=== PATIENT | female | born 1955 | race Caucasian/White ===

== ENCOUNTER 2016-11-20 14:37 | Emergency (ER) | payer SELFPAY ==
[2016-11-20] MEDS ORDERED: Lasix 40 MG/4 ML IV ONE (15:00)
[2016-11-20] MEDS ORDERED: BABY ASPIRIN 81 MG CHEW PO ONE (15:00)
[2016-11-20] MEDS ORDERED: Nitrostat 0.4 MG (ED) SL ONE ×3 (15:00→15:58)
[2016-11-20] MEDS ORDERED: Sodium Chloride 0.9% 1000 ML 1,000 ML IV SCH (15:00)
--- NOTE | 2016-11-20 15:00 | ERPHSYRPT ---
- History of Present Illness Time Seen by Provider: 11/20/16 14:50 Historian: patient Exam Limitations: clinical condition Patient Subjective Stated Complaint: CP Triage Nursing Assessment: CP SINCE 1000. NAUSEA, INCREASED SOB. RADIATING MID STERNAL CP TO LT ARM TO ELBOW. PAIN WORSE EARLIER BUT STILL HAS CP NOW. RESP EASY. NORMAL ORAL INTAKE. STATES HAD HEAVINESS IN CHEST LAST EVENING. Physician History: PATIENT WITH HISTORY OF HYPOTHYROIDISM COMPLAINS OF SUBSTERNAL CHEST PRESSURE INTERMITTENT SINCE YESTERDAY. HAS OCCASIONAL DYSPNEA, RADIATION OF PAIN TO LEFT SHOULDER ALONG WITH PRODUCTIVE COUGH [id number] SPUTUM. DENIES FEVER OR CHILLS. STATES PAIN SCALE 7/10 HAS BEEN CONSTANT. Timing/Duration: yesterday Activities at Onset: none Quality: pressure Location: substernal Chest Pain Radiation: arm Severity of Pain-Max: moderate Severity of Pain-Current: moderate Modifying Factors: Improves With: nitroglycerin, oxygen, change in position Associated Symptoms: cough Prior Chest Pain/Cardiac Workup: non-cardiac Nitro Today/Relief: 0.4 mg x 2 Aspirin Treatment Today: 81 mg x 4, provided at home Allergies/Adverse Reactions: pregabalin [From Lyrica] Allergy (Verified 11/20/16 14:46) Home Medications: Aspirin [Aspirin EC] 81 mg PO DAILY 03/08/16 [History] Levothyroxine Sodium 75 Mcg [Synthroid 75 Mcg] 75 mcg PO DAILY 03/08/16 [ History] Hx Tetanus, Diphtheria Vaccination/Date Given: Yes Hx Influenza Vaccination/Date Given: No Hx Pneumococcal Vaccination/Date Given: No Immunizations Up to Date: Yes - Review of Systems Constitutional: No Fever, No Chills Eyes: No Symptoms Ears, Nose, & Throat: No Symptoms Respiratory: Cough, Dyspnea Cardiac: Chest Pain, No Edema, No Syncope Abdominal/Gastrointestinal: No Symptoms, No Abdominal Pain, No Nausea, No Vomiting, No Diarrhea Genitourinary Symptoms: No Symptoms, No Dysuria Musculoskeletal: No Symptoms, No Back Pain, No Neck Pain Skin: No Rash Neurological: No Symptoms, No Dizziness, No Focal Weakness, No Sensory Changes Psychological: No Symptoms Endocrine: No Symptoms All Other Systems: Reviewed and Negative - Past Medical History Pertinent Past Medical History: Yes Neurological History: Peripheral Neuropathy ENT History: No Pertinent History Cardiac History: No Pertinent History Respiratory History: No Pertinent History Endocrine Medical History: Hypothyroidism Musculoskeletal History: Osteoarthritis GI Medical History: No Pertinent History History: No Pertinent History Psycho-Social History: No Pertinent History Female Reproductive Disorders: Menstrual Problems Other Medical History: REPORTS SHE HAS BEEN DIZZY MORE IN THE AM. BP HAS BEEN RUNNING LOWER THAN NORMAL. NUEROPATHY TO ALL LEFT TOES. - Past Surgical History Past Surgical History: Yes Neuro Surgical History: No Pertinent History Cardiac: No Pertinent History Gastrointestinal: No Pertinent History Genitourinary: No Pertinent History Musculoskeletal: No Pertinent History Female Surgical History: Hysterectomy Other Surgical History: cyst eye surgery--rt eye - Social History Smoking Status: Never smoker Exposure to second hand smoke: No Drug Use: none Patient Lives Alone: Yes Significant Family History:  - Nursing Vital Signs Temperature: 98.2 F Temperature Source: Oral Pulse Rate: 74 Respiratory Rate: 18 Pain Intensity: 5 - Physical Exam General Appearance: no apparent distress, alert Eye Exam: PERRL/EOMI, eyes nml inspection Ears, Nose, Throat Exam: normal ENT inspection, moist mucous membranes Neck Exam: normal inspection, non-tender, supple, full range of motion Respiratory Exam: normal breath sounds, lungs clear, No respiratory distress Cardiovascular Exam: regular rate/rhythm, normal heart sounds Gastrointestinal/Abdomen Exam: soft, normal bowel sounds, No tenderness, No mass Back Exam: normal inspection, No CVA tenderness, No vertebral tenderness Extremity Exam: normal inspection, normal range of motion, pedal edema, swelling (2+ PITTING EDEMA) Neurologic Exam: alert, oriented x 3, cooperative, normal mood/affect, sensation nml, No motor deficits Skin Exam: normal color, warm, dry SpO2 Interpretation: normal SpO2: 98 Oxygen Delivery: Room Air - Course EKG Interpreted by Me: RATE, Sinus Rhythm, Right [place] Deviation, Other ( INFERIOR T-WAVE INVERSION) - Radiology Exams Chest X-ray Interpretation: Discussed w/ radiologist (THERE IS A SUBTLE RIGHT BASE INFILTRATE VERSUS ATELECTASIS) Ordered Tests: Active Orders 24 hr Category Date Time Status Drying Can Worker STAT Care 11/20/16 15:00 Active EKG-ER Only STAT Care 11/20/16 15:00 Active EKG-ER Only STAT Care 11/20/16 15:50 Active IV Insertion STAT Care 11/20/16 15:00 Active Oxygen-ED Only NASAL CANNULA 2 lpm Care 11/20/16 15:00 Active CHEST 1 VIEW (PORTABLE) Stat Exams 11/20/16 15:01 Completed BLOOD CULTURE Stat Lab 11/20/16 15:10 Received CBC W DIFF Stat Lab 11/20/16 15:10 Completed CMP Urgent Lab 11/20/16 15:10 Completed D-DIMER QUANTITATION Stat Lab 11/20/16 13:30 Completed MAGNESIUM Urgent Lab 11/20/16 15:10 Completed NT PRO BNP Urgent Lab 11/20/16 15:10 Completed PROTIME WITH INR Stat Lab 11/20/16 13:30 Completed TROPONIN Q3H Lab 11/20/16 15:10 Completed TROPONIN Q3H Lab 11/20/16 18:15 Ordered TROPONIN Q3H Lab 11/20/16 21:15 Ordered TROPONIN Q3H Lab 11/21/16 00:15 Ordered TROPONIN Q3H Lab 11/21/16 03:15 Ordered Medication Summary Generic Name Dose Route Start Last Admin Trade Name Frejessica PRN Reason Stop Dose Admin Sodium Chloride 1,000 mls @ 30 mls/hr 11/20/16 15:00 11/20/16 15:13 Sodium Chloride 0.9% 1000 Ml IV 12/20/16 14:59 30 mls/hr .Q24H LUCILLE Administration Nitroglycerin 0.4 mg 11/20/16 15:53 11/20/16 16:04 Nitrostat 0.4 Mg Tablet SL 12/20/16 15:52 0.4 mg PRN PRN Administration CHEST PAIN Discontinued Medications Generic Name Dose Route Start Last Admin Trade Name Radha PRN Reason Stop Dose Admin Aspirin 324 mg 11/20/16 15:00 11/20/16 15:13 Baby Aspirin 81 Mg Chew PO 11/20/16 15:01 324 mg STAT ONE Administration Aspirin Confirm 11/20/16 15:09 Baby Aspirin 81 Mg Chew Administered 11/20/16 15:10 Dose 324 mg .ROUTE .STK-MED ONE Furosemide 40 mg 11/20/16 15:00 11/20/16 15:13 Lasix 40 Mg/4 Ml IV 11/20/16 15:01 40 mg STAT ONE Administration Furosemide Confirm 11/20/16 15:10 Lasix 40 Mg/4 Ml Administered 11/20/16 15:11 Dose 40 mg .ROUTE .STK-MED ONE Sodium Chloride Confirm 11/20/16 15:10 Sodium Chloride 0.9% 1000 Ml Administered 11/20/16 15:11 Dose 1,000 mls @ ud .ROUTE .STK-MED ONE Ceftriaxone Sodium/Dextrose 50 mls @ 100 mls/hr 11/20/16 15:43 11/20/16 15:49 Rocephin 1 Gm-D5w 50 Ml Bag IV 11/20/16 16:12 100 mls/hr STAT ONE Administration Ceftriaxone Sodium/Dextrose Confirm 11/20/16 15:47 Rocephin 1 Gm-D5w 50 Ml Bag Administered 11/20/16 15:48 Dose 50 mls @ ud IV .STK-MED ONE Nitroglycerin 0.4 mg 11/20/16 15:00 11/20/16 15:13 Nitrostat 0.4 Mg (Ed) SL 11/20/16 15:01 0.4 mg STAT ONE Administration Nitroglycerin Confirm 11/20/16 15:09 Nitrostat 0.4 Mg (Ed) Administered 11/20/16 15:10 Dose 0.4 mg SL .STK-MED ONE Nitroglycerin Confirm 11/20/16 15:58 Nitrostat 0.4 Mg (Ed) Administered 11/20/16 15:59 Dose 0.4 mg SL .STK-MED ONE Lab/Rad Data: Laboratory Result Diagrams 11/20/16 15:10 11/20/16 15:10 Laboratory Results 11/20/16 11/20/16 11/20/16 Range/Units 15:10 15:10 13:30 WBC 7.9 (4.0-10.5) K/mm3 RBC 4.16 (4.1-5.4) M/mm3 Hgb 13.1 (12.0-16.0) gm/dl Hct 41.4 (35-47) % MCV 99.5 (78-100) fl MCH 31.5 (26-32) pg MCHC 31.6 L (32-36) g/dl RDW 13.6 (11.5-14.0) % Plt Count 211 (150-450) K/mm3 MPV 12.2 H (6-9.5) fl Gran % 66.6 H (36.0-66.0) % Lymphocytes % 21.7 L (24.0-44.0) % Monocytes % 8.7 (0.0-12.0) % Eosinophils % 2.5 (0.00-5.0) % Basophils % 0.5 (0.0-0.4) % Basophils # 0.04 (0-0.4) INR 1.07 (0.8-3.0) D-Dimer 0.254 (0.00-0.49) mg/L Sodium 142 (136-145) mEq/L Potassium 4.0 (3.5-5.1) mEq/L Chloride 108 H (98-107) mEq/L Carbon Dioxide 26.1 (21-32) mEq/L Anion Gap 12.2 (5-15) MEQ/L BUN 20 (9-20) mg/dL Creatinine 0.80 (0.55-1.30) mg/dl Estimated GFR > 60 ML/MIN Glucose 91 (70-110) MG/DL Calcium 9.3 (8.5-10.1) mg/dL Magnesium 2.2 (1.8-2.4) mg/dL Total Bilirubin 0.4 (0.2-1.0) mg/dL AST 24 (15-37) U/L ALT 24 (12-78) U/L Alkaline Phosphatase 107 (46-116) U/L Troponin I < 0.017 (0.000-0.056) ng/ml NT-Pro-B Natriuret Pep 460 H (0-125) pg/ml Serum Total Protein 7.9 (6.4-8.2) gm/dL Albumin 4.2 (3.4-5.0) g/dL - Progress Progress Note: 11/20/16 16:33 PATIENT GIVEN IV NORMAL SALINE AT 30ML/HR, 4 BABY ASPIRIN, NTG O.4MG SL X2 PAIN IMPROVED TO PAIN SCALE 2/10, LASIX 40MG IV Blood Culture(s) Obtained: Yes Antibiotics given: Yes (ROCEPHIN 1MG IVPB) Discussed with : Other (DISCUSSED WITH DR MARTE AT 1630 ACCEPTS PATIENT TO [facility]IA [facility]) - Departure Time of Disposition: 17:35 Departure Disposition: Transfer Clinical Impression: ACUTE CHEST PAIN, PNEUMONIA Condition: Stable Critical Care Time: No Referrals: KATHLEEN IVERSON [Primary Care Provider] -
[2016-11-20] MEDS ORDERED: BABY ASPIRIN 81 MG CHEW ONE (15:09)
[2016-11-20] MEDS ORDERED: Lasix 40 MG/4 ML ONE (15:10)
[2016-11-20] MEDS ORDERED: Sodium Chloride 0.9% 1000 ML 1,000 ML ONE (15:10)
--- NOTE | 2016-11-20 15:18 | XRAY ---
Indication: Chest pain. Dyspnea. Comparison: July 28, 2007. Portable chest less inflated today with now subtle right base infiltrate versus atelectasis. Remaining heart, lungs, and bony thorax normal.
[2016-11-20 15:21] LABS: BASOPHIL % 0.5 % (0.0-0.4); Eosinophil % 2.5 % (0.00-5.0); Granulocytes % 66.6 % (36.0-66.0); Lymphocytes % 21.7 % (24.0-44.0); Mean Cell Volume 99.5 fl (78-100); Mean Corpuscular Hemoglobin 31.5 pg (26-32); Mean Platelet Volume 12.2 fl (6-9.5); Monocytes % 8.7 % (0.0-12.0); Platelet Count 211 K/mm3 (150-450); Red Blood Count 4.16 M/mm3 (4.1-5.4); Red Cell Distribution Width 13.6 % (11.5-14.0); White Blood Count 7.9 K/mm3 (4.0-10.5)
[2016-11-20] MEDS ORDERED: ROCEPHIN 1 Gm-D5w 50 ml Bag** 50 ML IV ONE ×2 (15:43→15:47)
[2016-11-20] MEDS ORDERED: Nitrostat 0.4 MG Tablet SL PRN (15:53)
[2016-11-20 15:55] LABS: INR 1.07 (0.8-3.0)
[2016-11-20 16:37] LABS: ALBUMIN 4.2 g/dL (3.4-5.0); ALKALINE PHOSPHATASE 107 U/L (46-116); ANION GAP 12.2 MEQ/L (5-15); BILIRUBIN,TOTAL 0.4 mg/dL (0.2-1.0); CHLORIDE 108 mEq/L (98-107); Carbon Dioxide 26.1 mEq/L (21-32); Glucose 91 MG/DL (70-110); MAGNESIUM 2.2 mg/dL (1.8-2.4); SGOT/AST 24 U/L (15-37); SGPT/ALT 24 U/L (12-78); SODIUM 142 mEq/L (136-145); Total Protein 7.9 gm/dL (6.4-8.2)
[2016-11-20 16:49] LABS: BLOOD UREA NITROGEN 20 mg/dL (9-20)
[2016-11-20 16:51] LABS: TROPONIN < 0.017 ng/ml (0.000-0.056)
[2016-11-20 17:38] VITALS: BP 158/58; PULSE 72; O2SAT 97
== END 2016-11-20 17:37 | disposition short-term general hospital (02) ==
LOC: ED 14:37
DX: R07.89 Other chest pain (principal); J18.9 Pneumonia, unspecified organism; R11.0 Nausea; E03.9 Hypothyroidism, unspecified; R06.00 Dyspnea, unspecified; R05 Cough
CPT/HCPCS: 36000; 36415; 71010; 80053; 83735; 83880; 84484; 85025; 85379; 85610; 87040; 93005; 93041; 96360; 96361; 96374; 99285; J0696; J1940

== ENCOUNTER 2018-07-27 07:54 | Day surgery (SDC) | payer BC, OTHER ==
[~2018-07-27 07:54] MED LIST: Lactated Ringers 1,000 ML IV ONE
[2018-07-27] MEDS ORDERED: DIPRIVAN 200 MG/20 ML IV ONE (07:55)
[2018-07-27] MEDS ORDERED: TETRACAINE 0.5% STERI-UNIT SOL OP ONE ×2 (08:00)
[2018-07-27] MEDS ORDERED: Lactated Ringers 1,000 ML IV SCH (08:00)
[2018-07-27] MEDS ORDERED: Ak-Dilate OPHTHALMIC*** 1.065 ML, Cyclogyl 1% OPHTH SOL 5 ML 1.065 ML, GATIFLOXACIN 0.5... OP ONE ×4 (08:00)
[2018-07-27] MEDS ORDERED: BSS 500 ML, Fortaz/Tazicef 1 GM** 0.2 G IO ONE ×2 (10:30)
[2018-07-27] MEDS ORDERED: Epinephrine Preservative Free 1 MG/ML INTRAOP ONE (10:30)
[2018-07-27] MEDS ORDERED: ACETAZOLAMIDE 250 MG TABLET PO ONE (10:30)
[2018-07-27] MEDS ORDERED: Zofran 4 MG/2 ML VIAL IV PRN (10:30)
[2018-07-27] MEDS ORDERED: LIDOCAINE HCL 1% AMPUL 5 ML IJ ONE (10:30)
[2018-07-27] MEDS ORDERED: BETADINE 5% OPHTHALMIC 30 ML OP ONE (10:30)
[2018-07-27 12:14] VITALS: O2SAT 99
[2018-07-27 12:16] VITALS: BP 130/57; PULSE 48
[2018-07-27 14:23] LABS: Risk Ratio 3.1
--- NOTE | 2018-07-27 14:57 | OP ---
DATE/TIME OF OPERATION: 07/27/2018 1015 TIME DICTATED: 1208 PREOPERATIVE DIAGNOSIS: Senile cataract of right eye. POSTOPERATIVE DIAGNOSIS: Senile cataract of right eye. SURGEON: Sam Pack MD LAN/WAN ENGINEER: None. OPERATION: Cataract extraction of right eye with an intraocular lens implant. STANDARD __X___ COMPLEX ANESTHESIA: MAC. ___X___ Monitored anesthesia care in combination with topical and intra-cameral anesthesia (because of the established specific risk of reflux, arrhythmias, or an anxiety attack associated with ocular manipulation as well as difficulty of the railway signalling engineer to manage such potentially catastrophic events while simultaneously attempting to complete the surgical procedure, it was deemed necessary for the patient's safety to have an anesthesiologist or a nurse oleo hasher and renderer present during the procedure whenever possible. The anesthesiologist or the nurse oleo hasher and renderer was utilized to monitor and regulate the intravenous sedation of the patient, so the patient was cooperative, relaxed, and comfortable). Topical anesthesia using Tetracaine eye drops together with intra cameral anesthesia using Lidocaine 1% MPF. The nurse was utilized to monitor the patient. ANESTHESIA PROVIDER: Ta Goznales CRNA. COMPLICATIONS: None. BLOOD LOSS: None. INDICATIONS: The patient is undergoing cataract surgery in the hopes of eliminating the visual complaints and difficulty. PROCEDURE: After arriving at the facility's outpatient surgery area, an IV was started; the patient was given 5 mg of p.o. Versed. (If an anesthesia provider was not monitoring the patient) The patient was then given topical anesthetic Tetracaine eye drops. A cotton pellet was soaked into a solution of a combination of Zymaxid 0.5%, Nnamdi-Synephrine 2.5% and Ocufen (other drops might have been substituted referenced in the patient's record). The pellet was inserted by the RN into the lower conjunctival cul-de-sac with a sterile forceps and left for 20 minutes. The pellet was then removed by the RN with a sterile forceps before taking the patient to the operating room. The preoperative area nurse identified the patient and marked the correct eye to be operated on. I identified the correct eye to be operated on and marked it appropriately in the outpatient surgery area. The patient was then taken into the operating room. Tetracaine eye drops were installed again in the correct eye. The eyelids and the lashes and the lid margins were scrubbed with Betadine solution. One drop of the diluted Betadine solution was placed in the conjunctival cul-de-sac for 45 seconds and then was irrigated. A drop of Tetracaine Gel was placed in the conjunctival cul-de-sac. The patient's forehead was taped to secure it during the procedure. The patient was monitored. The patient was then draped in the usual way for this procedure. An eye speculum was used to separate the eyelids. The eye was then fixated and a temporal 2.5 mm incision was made in the clear cornea temporally at the limbus. Through the incision, 0.25 cc of 1% non-preserved lidocaine was injected into the anterior chamber for intracameral anesthesia. The anterior chamber was then filled with viscoelastic. The pupil was small. I felt that it would be safer to mechanically dilate the pupil. A Malyugin ring was used at this point which dilated the pupil. That was removed at the end of the procedure prior to aspiration of the viscoelastic from the anterior chamber and posterior to the intraocular lens implant. The cataract had a great amount of cortical changes. That rendered seeing the anterior capsule difficult for a safe performance of an anterior capsulotomy. I injected an air bubble into the anterior chamber. I then injected 1 ML of vision blue solution into the anterior chamber. The vision blue solution was irrigated from the anterior chamber after 30 seconds. The anterior capsule was stained which facilitated performing the anterior capsulotomy safely. After that was completed, a cystotome was introduced into the anterior chamber and a round anterior capsulotomy was performed. The capsule was removed by a forceps. Hydrodissection was next carried utilizing a 25-gauge cannula and balanced salt solution to delineate the cortical material from the capsule and the nucleus from the cortical material. The nucleus was rotated freely into the capsular bag with no difficulty. The phaco tip of the [employer] Phacoemulsifier was introduced into the anterior chamber and two grooves were made into the nucleus 90 degrees apart. Using two spatulas resulted into the nucleus being fractured into four quadrants. The phaco tip was then used to remove each quadrant of the nucleus. Viscoelastic was used during this process to protect the corneal endothelium. Once the entire nucleus was removed, the phaco tip then was removed and the irrigation tip was introduced into the eye and the cortex was removed. The posterior capsule was polished. It was noticed that there was a tear into the posterior capsule with few vitreous strands into the pupil plan. An anterior vitrectomy was performed. A 21.50 diopter, [id number], posterior chamber lens implant, was inspected and found to be grossly normal. The implant was inserted into the implant injector cartridge; Viscoelastic again was introduced into the anterior chamber, which filled the capsular bag. The implant injector's cartridge tip was placed at the limbal wound and the posterior chamber implant was released into the capsular bag and rotated appropriately. The implant was found to be into the capsular bag and it was centered. ___X__ 0.2 ml of Tri-Moxi was introduced via 27 gauge cannula into the vitreous cavity through the ciliary processes. Viscoelastic was aspirated from the anterior chamber and posterior to the intraocular lens implant from the capsular bag using the irrigating tip. The anterior chamber was irrigated and filled with 5 cc antibiotic solution (500 cc of BSS plus 2 ml of Fortaz 100 mg/ml) ( if patient was not allergic to the medication). The lips of the corneal incision were hydrated using BSS solution. The anterior chamber was checked and found to be water tight. One drop each of antibiotic, steroid and NSAID drops (refer to chart for drops used) were placed in the conjunctival cul-de-sac of the operated eye. Patient tolerated the procedure quite well and left the operating room in satisfactory condition. DISCHARGE SUMMARY: The patient was released in stable condition. The patient and those with the patient were given an instruction sheet as of how to care for the eye after surgery as well as counseling on any abnormal laboratory studies by the postoperative RN. The patient was also given an appointment card for follow-up in the office and is to call immediately for any difficulties including but not limited to pain in the eye, decreased vision, discharge from the eye, headache and or fever. DISCHARGE DIAGNOSIS: Pseudophakia of right eye.
== END 2018-07-27 11:20 | disposition home or self-care (01) ==
LOC: SDC 07:54
PROVIDERS: ATTEND Ophthalmology
DX: H25.9 Unspecified age-related cataract (principal); I10 Essential (primary) hypertension; E07.9 Disorder of thyroid, unspecified
CPT/HCPCS: 36415; 80061; 83721; 94250; C1780; J0171; J2704; A9270-GY

== ENCOUNTER 2018-08-24 07:53 | Day surgery (SDC) | payer OTHER ==
[~2018-08-24 07:53] MED LIST changes: +Ak-Dilate OPHTHALMIC*** 1.065 ML, Cyclogyl 1% OPHTH SOL 5 ML 1.065 ML, GATIFLOXACIN 0.5... OP ONE; +Lactated Ringers 1,000 ML IV SCH; +TETRACAINE 0.5% STERI-UNIT SOL OP ONE
[2018-08-24] MEDS ORDERED: DIPRIVAN 200 MG/20 ML IV ONE (07:54)
[2018-08-24] MEDS ORDERED: BSS 500 ML, Fortaz/Tazicef 1 GM** 0.2 G IO ONE ×2 (09:00)
[2018-08-24] MEDS ORDERED: ACETAZOLAMIDE 250 MG TABLET PO ONE (09:00)
[2018-08-24] MEDS ORDERED: Epinephrine Preservative Free 1 MG/ML INTRAOP ONE (09:00)
[2018-08-24] MEDS ORDERED: Zofran 4 MG/2 ML VIAL IV PRN (09:00)
[2018-08-24] MEDS ORDERED: LIDOCAINE HCL 1% AMPUL 5 ML IJ ONE (09:00)
[2018-08-24] MEDS ORDERED: BETADINE 5% OPHTHALMIC 30 ML OP ONE (09:00)
[2018-08-24 11:09] VITALS: O2SAT 100
[2018-08-24 11:16] VITALS: BP 125/62; PULSE 53
--- NOTE | 2018-08-24 15:20 | OP ---
DATE/TIME OF OPERATION: 08/24/2018 0929 TIME DICTATED: 1146 PREOPERATIVE DIAGNOSIS: Senile cataract of left eye. POSTOPERATIVE DIAGNOSIS: Senile cataract of left eye. SURGEON: Sam Pack MD SHOULDER PAD MOLDER: None. OPERATION: Cataract extraction of left eye with an intraocular lens implant. STANDARD __X___ COMPLEX ANESTHESIA: MAC. ___X__ Monitored anesthesia care in combination with topical and intra-cameral anesthesia (because of the established specific risk of reflux, arrhythmias, or an anxiety attack associated with ocular manipulation as well as difficulty of the ship's master to manage such potentially catastrophic events while simultaneously attempting to complete the surgical procedure, it was deemed necessary for the patient's safety to have an anesthesiologist or a nurse packing tractor machine operator present during the procedure whenever possible. The anesthesiologist or the nurse packing tractor machine operator was utilized to monitor and regulate the intravenous sedation of the patient, so the patient was cooperative, relaxed, and comfortable). Topical anesthesia using Tetracaine eye drops together with intra cameral anesthesia using Lidocaine 1% MPF. The nurse was utilized to monitor the patient. ANESTHESIA PROVIDER: Ta Gonzales CRNA. COMPLICATIONS: None. BLOOD LOSS: None. INDICATIONS: The patient is undergoing cataract surgery in the hopes of eliminating the visual complaints and difficulty. PROCEDURE: After arriving at the facility's outpatient surgery area, an IV was started; the patient was given 5 mg of p.o. Versed. (If an anesthesia provider was not monitoring the patient) The patient was then given topical anesthetic Tetracaine eye drops. A cotton pellet was soaked into a solution of a combination of Zymaxid 0.5%, Nnamdi-Synephrine 2.5% and Ocufen (other drops might have been substituted referenced in the patient's record). The pellet was inserted by the RN into the lower conjunctival cul-de-sac with a sterile forceps and left for 20 minutes. The pellet was then removed by the RN with a sterile forceps before taking the patient to the operating room. The preoperative area nurse identified the patient and marked the correct eye to be operated on. I identified the correct eye to be operated on and marked it appropriately in the outpatient surgery area. The patient was then taken into the operating room. Tetracaine eye drops were installed again in the correct eye. The eyelids and the lashes and the lid margins were scrubbed with Betadine solution. One drop of the diluted Betadine solution was placed in the conjunctival cul-de-sac for 45 seconds and then was irrigated. A drop of Tetracaine Gel was placed in the conjunctival cul-de-sac. The patient's forehead was taped to secure it during the procedure. The patient was monitored. The patient was then draped in the usual way for this procedure. An eye speculum was used to separate the eyelids. The eye was then fixated and a temporal 2.5 mm incision was made in the clear cornea temporally at the limbus. Through the incision, 0.25 cc of 1% non-preserved lidocaine was injected into the anterior chamber for intracameral anesthesia. The anterior chamber was then filled with viscoelastic. The pupil was small. I felt that it would be safer to mechanically dilate the pupil. A Malyugin ring was used at this point which dilated the pupil. That was removed at the end of the procedure prior to aspiration of the viscoelastic from the anterior chamber and posterior to the intraocular lens implant. The cataract had a great amount of cortical changes. That rendered seeing the anterior capsule difficult for a safe performance of an anterior capsulotomy. I injected an air bubble into the anterior chamber. I then injected 1 ML of vision blue solution into the anterior chamber. The vision blue solution was irrigated from the anterior chamber after 30 seconds. The anterior capsule was stained which facilitated performing the anterior capsulotomy safely. After that was completed, a cystotome was introduced into the anterior chamber and a round anterior capsulotomy was performed. The capsule was removed by a forceps. Hydrodissection was next carried utilizing a 25-gauge cannula and balanced salt solution to delineate the cortical material from the capsule and the nucleus from the cortical material. The nucleus was rotated freely into the capsular bag with no difficulty. The phaco tip of the [employer] Phacoemulsifier was introduced into the anterior chamber and two grooves were made into the nucleus 90 degrees apart. Using two spatulas resulted into the nucleus being fractured into four quadrants. The phaco tip was then used to remove each quadrant of the nucleus. Viscoelastic was used during this process to protect the corneal endothelium. Once the entire nucleus was removed, the phaco tip then was removed and the irrigation tip was introduced into the eye and the cortex was removed. The posterior capsule was polished. It was noticed that there was a tear into the posterior capsule with few vitreous strands into the pupil plan. An anterior vitrectomy was performed. A 21.50 diopter, [id number], posterior chamber lens implant, was inspected and found to be grossly normal. The implant was inserted into the implant injector cartridge; Viscoelastic again was introduced into the anterior chamber, which filled the capsular bag. The implant injector's cartridge tip was placed at the limbal wound and the posterior chamber implant was released into the capsular bag and rotated appropriately. The implant was found to be into the capsular bag and it was centered. __X__ 0.2 ml of Tri-Moxi was introduced via 27 gauge cannula into the vitreous cavity through the ciliary processes. Viscoelastic was aspirated from the anterior chamber and posterior to the intraocular lens implant from the capsular bag using the irrigating tip. The anterior chamber was irrigated and filled with 5 cc antibiotic solution (500 cc of BSS plus 2 ml of Fortaz 100 mg/ml) ( if patient was not allergic to the medication). The lips of the corneal incision were hydrated using BSS solution. The anterior chamber was checked and found to be water tight. One drop each of antibiotic, steroid and NSAID drops (refer to chart for drops used) were placed in the conjunctival cul-de-sac of the operated eye. Patient tolerated the procedure quite well and left the operating room in satisfactory condition. DISCHARGE SUMMARY: The patient was released in stable condition. The patient and those with the patient were given an instruction sheet as of how to care for the eye after surgery as well as counseling on any abnormal laboratory studies by the postoperative RN. The patient was also given an appointment card for follow-up in the office and is to call immediately for any difficulties including but not limited to pain in the eye, decreased vision, discharge from the eye, headache and or fever. DISCHARGE DIAGNOSIS: Pseudophakia of left eye.
== END 2018-08-24 10:42 | disposition home or self-care (01) ==
LOC: SDC 07:53
PROVIDERS: ATTEND Ophthalmology
DX: H25.9 Unspecified age-related cataract (principal); I10 Essential (primary) hypertension; E07.9 Disorder of thyroid, unspecified
CPT/HCPCS: 94250; C1780; J0171; J2704; A9270-GY